=== PATIENT | male | born 1930 | race Two or more races ===

== ENCOUNTER 2020-06-26 05:25 | Day surgery (SDC) | payer OTHER ==
[~2020-06-26 05:25] MED LIST: CALCIUM500 M2 PO; FORTAMET500 MG PO; GLIPIZIDE XL10 MG PO; IRON325 MG PO; LEVO-T25 MCG PO; SIMVASTATIN80 MG PO; ZESTRIL40 M1 PO
[2020-06-26] MEDS ORDERED: ULTRACET PO (08:46)
[2020-06-26] MEDS ORDERED: NEURONTIN300 MG PO (08:47)
== END 2020-06-26 11:40 | disposition home or self-care (01) ==
LOC: EDSEX 05:25 → CIR.AMB 05:25
PROVIDERS: ATTEND Surgery
DX: C20 Malignant neoplasm of rectum (principal); Z20.828 Contact with and (suspected) exposure to other viral communicable diseases; K62.6 Ulcer of anus and rectum